=== PATIENT | male | born 2000 | race Two or more races ===

== ENCOUNTER 2024-08-22 18:29 | Observation (INO) ==
[2024-08-22 19:22] LABS: Basophils # (auto) 0.05 K/uL (0.00-0.20); Basophils % (auto) 0.3 %; Eosinophils # (auto) 0.04 K/uL (0.00-0.50); Eosinophils % (auto) 0.2 %; Hematocrit (blood only) 46.5 % (42.0-52.0); Hemoglobin 16.2 g/dl (14.0-18.0); Immature Granulocytes % (auto) 0.5 %; Lymphocytes # (auto) 1.76 K/uL (1.20-3.40); Lymphocytes % (auto) 9.3 %; Mean Corpuscular Hemoglobin 29.7 pg (25.0-34.0); Mean Corpuscular Hgb Conc 34.8 g/dL (32.0-36.0); Mean Corpuscular Volume 85.3 fL (80.0-100.0); Monocytes % (auto) 6.8 %; Neutrophils # (auto) 15.73 K/uL (1.40-6.50); Neutrophils % (auto) 82.9 %; Platelet Count 202 K/uL (130-400); RDW Coefficient of Variation 12.5 % (11.5-14.5); RDW Standard Deviation 38.3 fL (36.4-46.3); Red Blood Count 5.45 M/uL (4.70-6.10); White Blood Count 18.98 K/ul (4.8-10.8)
[2024-08-22 19:23] LABS: iSTAT Hemoglobin 16.7 g/dl (14.0-18.0); iSTAT Ionized Calcium 1.15 mmol/l (1.12-1.32); iSTAT Potassium 3.7 mmol/L (3.3-5.0)
[2024-08-22] MEDS: SODIUM CHLORIDE 0.9% 1,000 ML IV SCH (19:23)
[2024-08-22] MEDS: OPTIRAY 320 100ml IV ONE (19:31)
--- NOTE | 2024-08-22 19:32 | Emergency Department Note ---
History of Present Illness General Chief complaint: Fever Stated complaint: SURGERY ON MON,FEVER,CHILLS,NAUSEA Time Seen by Provider: 08/22/24 18:43 History of Present Illness Provider complaint: Fever abdominal pain Onset (ago): day(s) 1 Maximum Pain Intensity: 3 24-year-old male presents emergency department for fever and abdominal pain. Patient reports symptoms began today. Tmax 1-1.4. Patient reports no nausea or vomiting. He reports that he recently had his appendix removed by Dr. Mills. He states there is swelling and redness over the incision sites from the laparoscopic surgery. No drainage. Home Medications Medication Instructions Recorded Confirmed Type oxycodone 5 mg tablet 5 mg PO Q6H PRN pain #12 tabs 08/18/24 08/22/24 Rx Allergies Allergy/AdvReac Type Severity Reaction Status Date / Time No Known Allergies Allergy Verified 08/22/24 20:09 Past Med/Surg History Problem List (Updated 08/22/24 @ 22:48 by Ramana Sterling MD) Cellulitis (Acute) Superficial incisional surgical site infection (Acute) Acute appendicitis (Acute) Surgical History S/P laparoscopic appendectomy (08/18/24) Laparoscopic Appendectomy - Dinesh Mills, Social History Smoking Status: Never smoker Preferred Language: [place] Feels Safe at Home: Yes Physical Exam Vital Signs Vital Signs - 24 hr 08/22/24 18:37 08/22/24 19:08 08/22/24 19:14 Temperature 36.2 C L 37.1 C Temperature Source Temporal Artery Scan Oral Pulse Rate 113 H 108 H Pulse Rate [Right Finger] 110 H Respiratory Rate 18 18 Respiratory Effort / Characteristics Non-Labored Non-Labored Spontaneous Respiratory Depth Normal Normal Respiratory Pattern Regular Blood Pressure 107/67 Blood Pressure [Right Arm] 126/75 Blood Pressure Mean 80 Blood Pressure Mean [Right Arm] 92 Pulse Oximetry 97 98 Oxygen Delivery Method Room Air Room Air Sepsis Recent Fever Within 48 Hours No Sepsis New/Unexplained Change in Mental Status N/A Sepsis Action Taken by Nursing No Action Required 08/22/24 19:45 08/22/24 20:00 08/22/24 20:15 Temperature Temperature Source Pulse Rate Pulse Rate [Right Finger] 102 H 103 H 94 H Respiratory Rate 20 20 20 Respiratory Effort / Characteristics Non-Labored Spontaneous Non-Labored Spontaneous Non-Labored Spontaneous Respiratory Depth Normal Normal Normal Respiratory Pattern Blood Pressure Blood Pressure [Right Arm] 133/84 137/70 121/77 Blood Pressure Mean Blood Pressure Mean [Right Arm] 100 92 91 Pulse Oximetry 98 98 98 Oxygen Delivery Method Room Air Room Air Room Air Sepsis Recent Fever Within 48 Hours Sepsis New/Unexplained Change in Mental Status Sepsis Action Taken by Nursing 08/22/24 20:30 08/22/24 22:00 08/22/24 22:06 Temperature Temperature Source Pulse Rate 102 H Pulse Rate [Right Finger] 102 H 102 H Respiratory Rate 18 18 18 Respiratory Effort / Characteristics Non-Labored Spontaneous Non-Labored Spontaneous Respiratory Depth Normal Normal Respiratory Pattern Blood Pressure 108/69 Blood Pressure [Right Arm] 126/80 108/69 Blood Pressure Mean Blood Pressure Mean [Right Arm] 95 82 Pulse Oximetry 99 98 98 Oxygen Delivery Method Room Air Room Air Room Air Sepsis Recent Fever Within 48 Hours Sepsis New/Unexplained Change in Mental Status Sepsis Action Taken by Nursing Physical Exam GENERAL: oriented to person, place, and time. appears well-developed and well- nourished. She does not appear distressed. HENT: Exam performed. -Head: Normocephalic and atraumatic. -Right Ear: External ear normal. No mastoid erythema -Left Ear: External ear normal. No mastoid erythema -Mouth/Throat: The oropharynx is clear and moist. No trismus in the jaw. No dental abscesses or uvula swelling. No oropharyngeal exudate or tonsillar abscesses. EYES: Conjunctivae and EOM are normal.Right eye exhibits no discharge. Left eye exhibits no discharge. No scleral icterus. NECK: Normal range of motion. Neck supple. No JVD present. No tracheal deviation and normal range of motion present. CV: Tachycardic rate, regular rhythm, normal heart sounds and intact distal pulses. There is no peripheral edema. Palpable radial pulses bue. PULM/CHEST: Effort normal and breath sounds normal. No respiratory distress. No stridor. no wheezes.no rales. -Chest Wall: no tenderness to palpation ABD: The abdomen is soft. Bowel sounds are normal. no distension. The surgical laparoscopic incision sites are present. In the left lower quadrant there is a surgical incision site which has surrounding erythema and appears inflamed. There is tenderness and swelling in that area. There is no rebound, no guarding MUSC/SKEL: Normal range of motion. There is no peripheral edema, tenderness or deformity. NEURO: Motor and sensation grossly intact. SKIN: Skin is warm and dry. not diaphoretic. PSYCH: normal mood and affect. Behavior is normal. Judgment and thought content normal. Course Course 1842: The patient was evaluated in room B12. A complete history and physical exam was performed Cardiac monitoring: An order was placed for continuous cardiac monitoring. The monitor shows a rate of 110 with sinus tachycardia rhythm interpreted by [place] 2115: Vital signs stable. Labs show leukocytosis of 18. Imaging shows cellulitis but no abscess. Discussed case with Dr. Gomez on-call general surgery who did come down to evaluate the patient at bedside. He recommends Unasyn for the patient. Discussed the results of the patient's scan and blood work with him. The patient, Dr. Gomez, and myself discussed the plan of inpatient admission overnight for IV antibiotics versus outpatient oral antibiotics and discharged from the emergency department. After discussion between 3 of us, we decided to admit the patient overnight and continue IV antibiotics and for Dr. Gomez to evaluate the patient in the morning. Administered Medications Discontinued Medications Sodium Chloride (Nss) 1,000 mls @ 999 mls/hr IV .Q1H1M ALICIA Stop: 08/22/24 19:45 Last Infusion: 08/22/24 21:24 Dose: Infused Documented By: Admin: 08/22/24 19:23 Dose: 999 mls/hr Documented By: JOSE Ampicillin Sodium/Sulbactam Sodium (Unasyn) 3,000 mg in 100 mls @ 200 mls/hr IV NOW STA Stop: 08/22/24 21:25 Last Infusion: 08/22/24 21:59 Dose: Infused Documented By: Admin: 08/22/24 21:24 Dose: 200 mls/hr Documented By: KRISTINA Ioversol (Optiray 320 100ml) 93 ml IV ONCE ONE Stop: 08/22/24 19:32 Last Admin: 08/22/24 19:31 Dose: 93 ml Documented By: MIESHA Medical Decision Making Laboratory Data Attestation: I reviewed the patient's lab results. 08/22/24 19:12 08/22/24 19:05 Lab Results 08/22/24 08/22/24 08/22/24 Range/Units 19:05 19:11 19:12 WBC 18.98 H (4.8-10.8) K/ul RBC 5.45 (4.70-6.10) M/uL Hgb 16.2 (14.0-18.0) g/dl POC Hgb 16.7 (14.0-18.0) g/dl Hct 46.5 (42.0-52.0) % POC Hct 49 (42-52) % MCV 85.3 (80.0-100.0) fL MCH 29.7 (25.0-34.0) pg MCHC 34.8 (32.0-36.0) g/dL RDW Std Deviation 38.3 (36.4-46.3) fL RDW Coeff of Stepan 12.5 (11.5-14.5) % Plt Count 202 (130-400) K/uL MPV 10.0 (9.4-12.4) fL Immature Gran % (Auto) 0.5 % Neut % (Auto) 82.9 % Lymph % (Auto) 9.3 % Beauregard % (Auto) 6.8 % Eos % (Auto) 0.2 % Baso % (Auto) 0.3 % Neut # (Auto) 15.73 H (1.40-6.50) K/uL Lymph # (Auto) 1.76 (1.20-3.40) K/uL Beauregard # (Auto) 1.30 H (0.11-0.59) K/uL Eos # (Auto) 0.04 (0.00-0.50) K/uL Baso # (Auto) 0.05 (0.00-0.20) K/uL Immature Gran # (Auto) 0.10 (0.01-0.20) K/uL PT 10.0 (9.0-12.0) Seconds INR 0.9 (0.9-1.1) APTT 29 (21-31) Seconds PTT Ratio 1.1 POC Sodium 137 (135-144) mmol/L Sodium 136 (136-145) mmol/L POC Potassium 3.7 (3.3-5.0) mmol/L Potassium 3.7 (3.5-5.1) mmol/L POC Chloride 101 (101-112) mmol/L Chloride 100 (98-107) mmol/L Carbon Dioxide 25 (21-32) mmol/L POC Total CO2 24 (24-31) mmol/L Anion Gap 11 (3-11) POC Anion Gap 17.0 (16-25) mmol/L POC BUN 9 (7-18) mg/dl BUN 10 (6-23) mg/dl Creatinine 0.94 (0.6-1.4) mg/dl POC Creatinine 1.0 (0.6-1.3) mg/dl Est Cr Clr Drug Dosing 144.5 ml/min eGFR 115.37 BUN/Creatinine Ratio 10.6 (10-20) Glucose 126 H (70-99(Fasting)) mg/dl POC Glucose (other) 128 H (70-99) mg/dl Lactate 1.2 (0.4-2.0) mmol/L Calcium 9.9 (8.6-10.3) mg/dl POC Ioniz Calcium Rush 1.15 (1.12-1.32) mmol/l Magnesium 2.0 (1.7-2.4) mg/dl Total Bilirubin 0.9 (0.2-1.0) mg/dl Direct Bilirubin 0.1 (0-0.2) mg/dl AST 26 (13-39) U/L ALT 55 H (7-52) U/L Alkaline Phosphatase 99 (34-104) U/L Troponin I High Sens 3.5 (0-20) pg/ml Total Protein 8.2 (6.0-8.3) gm/dl Albumin 4.2 (3.4-5.0) gm/dl Procalcitonin 0.05 (0-0.5) ng/ml Imaging Data Attestation: I personally reviewed and interpreted this imaging study as follows: My Impression: Chest x-ray negative. Airway clear. No pneumothorax. No consolidation. No cardiomegaly or cephalization.. No free air under the diaphragm. No fractures of the skeletal structures. Radiologist's Impression: Chest X-Ray 08/22/24 18:44 EXAM: XR chest 1V portable CLINICAL HISTORY: Sepsis. TECHNIQUE: An X-ray image of the chest is obtained in AP projection. COMPARISON: No prior studies are available for comparison. FINDINGS: Pulmonary Parenchyma: Lungs are clear bilaterally. No evidence of consolidation, collapse, or focal opacities. No pulmonary nodules are identified. No evidence of pleural effusion or pleural thickening. Heart and Mediastinum: Heart size and shape are normal. No mediastinal widening or masses. No hilar or mediastinal lymphadenopathy. Bony Thorax: Bony thorax appears intact without fractures or deformities. Soft Tissues: Soft tissues overlying the chest wall are unremarkable. IMPRESSION: No acute cardiopulmonary abnormalities are identified. Electronically signed by Scott Blas 08-22-2024 9:33 PM Abdomen/Pelvis CT 08/22/24 18:45 CT of the abdomen pelvis with contrast Technique: Postcontrast axial images of the abdomen pelvis. Coronal and sagittal reformatted images made available for review Comparison made with prior exam dated 08/18/2024 Findings: New postoperative changes appendectomy.Solid abdominal organs are unremarkable in appearance. No free air or intestinal obstruction. Bone windows demonstrate no focal abnormality. Urinary bladder within normal limits. Expected postoperative changes in the subcutaneous soft tissue of the left anterior abdomen. Impression New postoperative changes appendectomy. CT of the abdomen pelvis otherwise negative for acute intra-abdominal pathology. Electronically signed by Tay Last 08-22-2024 8:30 PM ECG Data Attestation: I personally reviewed and interpreted this ECG as follows: Rate (beats per minute): 108 Rhythm: + normal sinus ECG Intervals/blocks: + Normal QRS, + Normal KS and + Normal QT-c ECG ST segments: + Normal ST segments [facility] Narrative 1843: The patient was evaluated in room B12. A complete history and physical exam was performed Cardiac monitoring: An order was placed for continuous cardiac monitoring. The monitor shows a rate of 110 with sinus tachycardia rhythm interpreted by [place] 2115: Vital signs stable. Labs show leukocytosis of 18. Imaging shows cellulitis but no abscess. Discussed case with Dr. Gomez on-call general surgery who did come down to evaluate the patient at bedside. He recommends Unasyn for the patient. Discussed the results of the patient's scan and blood work with him. The patient, Dr. Gomez, and myself discussed the plan of inpatient admission overnight for IV antibiotics versus outpatient oral antibiotics and discharged from the emergency department. After discussion between 3 of us, we decided to admit the patient overnight and continue IV antibiotics and for Dr. Gomez to evaluate the patient in the morning. Impression & Plan Superficial incisional surgical site infection, Cellulitis Discharge Plan Visit Data Chief Complaint: Fever Stated Complaint: SURGERY ON MON,FEVER,CHILLS,NAUSEA ED Provider: Ramana Sterling Discharge Problem: Superficial incisional surgical site infection, Cellulitis Patient Disposition: Admitted As Inpatient Condition: Fair Discharge Instructions Interventions: ED Discharge Assessment Last Done: 08/22/24 22:06 Forms Stand Alone Forms: [employer] [facility] [employer] Prescriptions Prescriptions: No Action oxycodone 5 mg tablet 5 mg PO Q6H PRN (Reason: pain) Qty: 12 0RF Rx Instructions: Initial Therapy post surgery Referrals Referrals: PCP,NO [Primary Care Provider] -
[2024-08-22 19:47] LABS: BUN Creatinine Ratio 10.6 (10-20); Bilirubin Direct 0.1 mg/dl (0-0.2); Bilirubin,Total 0.9 mg/dl (0.2-1.0); Calcium 9.9 mg/dl (8.6-10.3); Creatinine Clr Calc Pharmacy 144.5 ml/min; Potassium 3.7 mmol/L (3.5-5.1); Total Protein 8.2 gm/dl (6.0-8.3)
[2024-08-22 19:58] LABS: INR 0.9 (0.9-1.1); Partial Thromboplastin Ratio 1.1; Partial Thromboplastin Time 29 Seconds (21-31)
[2024-08-22 20:09] LABS: Troponin I High Sensitivity 3.5 pg/ml (0-20)
--- NOTE | 2024-08-22 20:30 | CT Scan Report ---
CT of the abdomen pelvis with contrast Technique: Postcontrast axial images of the abdomen pelvis. Coronal and sagittal reformatted images made available for review Comparison made with prior exam dated 08/18/2024 Findings: New postoperative changes appendectomy.Solid abdominal organs are unremarkable in appearance. No free air or intestinal obstruction. Bone windows demonstrate no focal abnormality. Urinary bladder within normal limits. Expected postoperative changes in the subcutaneous soft tissue of the left anterior abdomen. Impression New postoperative changes appendectomy. CT of the abdomen pelvis otherwise negative for acute intra-abdominal pathology. Electronically signed by Tay Last 08-22-2024 8:30 PM
[2024-08-22] MEDS: AMPICILLIN/SULBACTAM SOD 3,000 MG/100 ML BAG IV STA (21:24)
--- NOTE | 2024-08-22 21:25 | History & Physical Report ---
Date of Service August 22, 2024 Assessment & Plan (1) Superficial incisional surgical site infection: Plan: Superficial surgical site infection at 12 mm port site in the left lower quadrant. Given his fevers and leukocytosis, will admit for IV antibiotics. Hope for discharge in next 24 hours. Admit to observation to MedSurg IV antibiotics IV fluids for resuscitation given tachycardia Patient may have regular diet, oral pain meds, scheduled Toradol Continue to monitor cellulitis, hopeful for discharge in next 24 hours Will be discharged on oral antibiotics and follow-up with Dr. Mills as an outpatient (2) S/P laparoscopic appendectomy: History of Present Illness Chief Complaint: Redness around incision Primary Care Provider: NO PCP Presented to the emergency department with chief complaint of redness around his left lower quadrant incision. Status post uncomplicated laparoscopic appendectomy with Dr. Mills on 18 August 2024. Was doing well until he started noticed some redness and tenderness today. Did have fever reported to 101.5. Tender and red around his left lower quadrant incision. Otherwise has been doing well since surgery. No allergies, not on any blood thinners. Otherwise healthy Allergies Allergy/AdvReac Type Severity Reaction Status Date / Time No Known Allergies Allergy Verified 08/22/24 20:09 Home Medications Medication Instructions Recorded Confirmed Type oxycodone 5 mg tablet 5 mg PO Q6H PRN pain #12 tabs 08/18/24 08/22/24 Rx Past Med/Surg History Problem List (Updated 08/22/24 @ 21:24 by Hector Gomez DO, FACS) Superficial incisional surgical site infection Acute appendicitis (Acute) Surgical History S/P laparoscopic appendectomy (08/18/24) Laparoscopic Appendectomy - Dinesh Mills DO Social History Smoking Status: Never smoker Preferred Language: [place] Feels Safe at Home: Yes Review of Systems Review of Systems: All systems reviewed & are unremarkable except as noted in HPI & below Physical Exam Constitutional: WD/WN, vitals as above + obese Respiratory: normal respiratory effort, lungs clear to auscultation Cardiovascular: RRR, no murmur, no edema Gastrointestinal (Abdomen): Inspection/Auscultation: + abdominal surgical incision (Erythema and induration around LLQ incision, no fluctuance) Percussion/Palpation: + abdomen tender (Left lower quadrant incision) and abdomen soft; no guarding and abdomen not rigid Results & Data Results & Data Vital Signs (Past 12 Hours) Vital Signs Temp Pulse Pulse Resp BP BP Pulse Ox 08/22/24 20:30 102 H 18 126/80 99 08/22/24 20:15 94 H 20 121/77 98 08/22/24 20:00 103 H 20 137/70 98 08/22/24 19:45 102 H 20 133/84 98 08/22/24 19:14 37.1 C 110 H 18 126/75 98 08/22/24 19:08 108 H 08/22/24 18:37 36.2 C L 113 H 18 107/67 97 O2 Del Method 08/22/24 20:30 Room Air 08/22/24 20:15 Room Air 08/22/24 20:00 Room Air 08/22/24 19:45 Room Air 08/22/24 19:14 Room Air 08/22/24 19:08 08/22/24 18:37 Room Air Laboratory Results Laboratory Results - last 24 hr 08/22/24 08/22/24 08/22/24 19:05 19:11 19:12 WBC 18.98 H RBC 5.45 Hgb 16.2 POC Hgb 16.7 Hct 46.5 POC Hct 49 MCV 85.3 MCH 29.7 MCHC 34.8 RDW Std Deviation 38.3 RDW Coeff of Stepan 12.5 Plt Count 202 MPV 10.0 Immature Gran % (Auto) 0.5 Neut % (Auto) 82.9 Lymph % (Auto) 9.3 Casey % (Auto) 6.8 Eos % (Auto) 0.2 Baso % (Auto) 0.3 Neut # (Auto) 15.73 H Lymph # (Auto) 1.76 Casey # (Auto) 1.30 H Eos # (Auto) 0.04 Baso # (Auto) 0.05 Immature Gran # (Auto) 0.10 PT 10.0 INR 0.9 APTT 29 PTT Ratio 1.1 POC Sodium 137 Sodium 136 POC Potassium 3.7 Potassium 3.7 POC Chloride 101 Chloride 100 Carbon Dioxide 25 POC Total CO2 24 Anion Gap 11 POC Anion Gap 17.0 POC BUN 9 BUN 10 Creatinine 0.94 POC Creatinine 1.0 Est Cr Clr Drug Dosing 144.5 eGFR 115.37 BUN/Creatinine Ratio 10.6 Glucose 126 H POC Glucose (other) 128 H Lactate 1.2 Calcium 9.9 POC Ioniz Calcium Rush 1.15 Magnesium 2.0 Total Bilirubin 0.9 Direct Bilirubin 0.1 AST 26 ALT 55 H Alkaline Phosphatase 99 Troponin I High Sens 3.5 Total Protein 8.2 Albumin 4.2 Procalcitonin 0.[address] scan personally viewed and interpreted agree with the assessment of no intra- abdominal abnormality, status post appendectomy. Soft tissue inflammation in left lower quadrant at incision site. Consistent with cellulitis. Abdomen/Pelvis CT 08/22/24 18:45 CT of the abdomen pelvis with contrast Technique: Postcontrast axial images of the abdomen pelvis. Coronal and sagittal reformatted images made available for review Comparison made with prior exam dated 08/18/2024 Findings: New postoperative changes appendectomy.Solid abdominal organs are unremarkable in appearance. No free air or intestinal obstruction. Bone windows demonstrate no focal abnormality. Urinary bladder within normal limits. Expected postoperative changes in the subcutaneous soft tissue of the left anterior abdomen. Impression New postoperative changes appendectomy. CT of the abdomen pelvis otherwise negative for acute intra-abdominal pathology. Electronically signed by Tay Last 08-22-2024 8:30 PM Code Status & VTE Plan VTE Prophylaxis Plan VTE Prophylaxis will be ordered: Yes PG Care Time/CCT Total # of Minutes Spent Total Time Spent with Patient: Total time spent is greater than 50% in coordination of care (as documented) at patient's floor/unit and/or counseling patient: Coding Level of Care Code 20879 INT INP/OBS CARE 2/55MIN Diagnoses Superficial incisional surgical site infection T81.41XA S/P laparoscopic appendectomy Z90.49
--- NOTE | 2024-08-22 21:33 | XRay Report ---
EXAM: XR chest 1V portable CLINICAL HISTORY: Sepsis. TECHNIQUE: An X-ray image of the chest is obtained in AP projection. COMPARISON: No prior studies are available for comparison. FINDINGS: Pulmonary Parenchyma: Lungs are clear bilaterally. No evidence of consolidation, collapse, or focal opacities. No pulmonary nodules are identified. No evidence of pleural effusion or pleural thickening. Heart and Mediastinum: Heart size and shape are normal. No mediastinal widening or masses. No hilar or mediastinal lymphadenopathy. Bony Thorax: Bony thorax appears intact without fractures or deformities. Soft Tissues: Soft tissues overlying the chest wall are unremarkable. IMPRESSION: No acute cardiopulmonary abnormalities are identified. Electronically signed by Scott Blas 08-22-2024 9:33 PM
[2024-08-22] MEDS ORDERED: ONDANSETRON INJ 2 MG/ML 2 ML VIAL IV PRN (23:10)
[2024-08-22] MEDS ORDERED: MoRPHine SULFATE 4 MG/ML 1 ML CARP\\VIAL IV PRN (23:10)
[2024-08-22] MEDS ORDERED: oxyCODONE HCL IR 5 MG TAB (IMMEDIATE RELEASE) PO PRN ×2 (23:10)
[2024-08-22] MEDS ORDERED: ACETAMINOPHEN 500 MG TAB PO PRN (23:10)
[2024-08-22] MEDS ORDERED: MoRPHine SULFATE 2 MG/ML CARP IV PRN (23:10)
[2024-08-23] MEDS: LACTATED RINGER'S 1,000 ML IV SCH (00:04)
[2024-08-23] MEDS: KETOROLAC TROMETHAMINE 15 MG/ML VIAL IV SCH (00:04)
[2024-08-23] MEDS: AMPICILLIN/SULBACTAM SOD 3,000 MG/100 ML BAG IV SCH (04:41)
[2024-08-23 08:14] VITALS: RESP 16
[2024-08-23 08:49] LABS: Basophils # (auto) 0.03 K/uL (0.00-0.20); Basophils % (auto) 0.2 %; Eosinophils # (auto) 0.03 K/uL (0.00-0.50); Eosinophils % (auto) 0.2 %; Hematocrit (blood only) 39.8 % (42.0-52.0); Hemoglobin 13.9 g/dl (14.0-18.0); Immature Granulocytes # (auto) 0.06 K/uL (0.01-0.20); Immature Granulocytes % (auto) 0.4 %; Lymphocytes # (auto) 2.42 K/uL (1.20-3.40); Lymphocytes % (auto) 15.5 %; Mean Corpuscular Hemoglobin 29.8 pg (25.0-34.0); Mean Corpuscular Hgb Conc 34.9 g/dL (32.0-36.0); Mean Corpuscular Volume 85.2 fL (80.0-100.0); Mean Platelet Volume 9.6 fL (9.4-12.4); Monocytes # (auto) 0.98 K/uL (0.11-0.59); Monocytes % (auto) 6.3 %; Neutrophils # (auto) 12.14 K/uL (1.40-6.50); Neutrophils % (auto) 77.4 %; Platelet Count 174 K/uL (130-400); RDW Coefficient of Variation 12.5 % (11.5-14.5); RDW Standard Deviation 38.5 fL (36.4-46.3); Red Blood Count 4.67 M/uL (4.70-6.10); White Blood Count 15.66 K/ul (4.8-10.8)
[2024-08-23 09:08] LABS: BUN Creatinine Ratio 14.9 (10-20); Calcium 8.4 mg/dl (8.6-10.3); Creatinine Clr Calc Pharmacy 183.3 ml/min; Potassium 3.4 mmol/L (3.5-5.1)
--- NOTE | 2024-08-23 09:09 | Surgery Progress Note ---
Date of Service August 23, 2024 Assessment & Plan (1) Superficial incisional surgical site infection: Plan: Superficial surgical site infection at 12 mm port site in the left lower quadrant. -Incision site this morning does have some purulent drainage, will plan to open/probe the incision at bedside this morning -Continue IV antibiotics, continue to trend temps and WBC -Slightly tachycardic overnight, will continue to provide IV fluids for now -Continue regular diet, oral pain meds and scheduled Toradol (2) S/P laparoscopic appendectomy: Admission and Anticipated Discharge Date Admission Date: August 22, 2024 Supervising Physician Co-Signing Physician Notes Patient seen examined, labs reviewed, agree with above. Status post laparoscopic appendectomy, admitted overnight with cellulitis at left lower quadrant port incision. Feels better, is draining a little bit of pus from the incision. On exam he is currently afebrile with stable vitals. He has some improved cellulitis in the left upper quadrant however there is some purulent drainage. The Dermabond was removed, the sutures were cut, and the wound was probed. About 20 cc of purulent drainage was expressed. This was sent for culture. The wound was packed with gauze. WBC 16 down from 18. We will see how he does today, feeling okay this afternoon he may be able to be discharged, if not we will discharge him tomorrow on oral antibiotics with local wound care. He should follow-up with the general surgery clinic for wound care instructions on Sunday, and follow-up with Dr. Mills in the next few weeks. Subjective Patient feeling well this morning Denies any fevers overnight Continues on IV abx and WBC 15.6 this morning Tolerating diet without issues of worsening abdominal pain, nausea or vomiting Physical Exam Constitutional: WD/WN, vitals as above Respiratory: normal respiratory effort, lungs clear to auscultation Cardiovascular: RRR, no murmur, no edema Gastrointestinal (Abdomen): Abdomen soft, nondistended, +erythema and induration over LLQ incision, small amount of dark/purulent drainage appreciated from site Results & Data Vital Signs (Past 12 Hours) Vital Signs Temp Pulse Pulse Resp BP BP Pulse Ox 08/23/24 07:00 36.8 C 99 H 16 112/73 95 08/22/24 23:10 37.1 C 103 H 18 129/78 98 08/22/24 22:55 37.1 C 103 H 18 129/78 98 08/22/24 22:06 102 H 18 108/69 98 08/22/24 22:00 102 H 18 108/69 98 O2 Del Method 08/23/24 07:00 Room Air 08/22/24 23:10 Room Air 08/22/24 22:55 Room Air 08/22/24 22:06 Room Air 08/22/24 22:00 Room Air PG Care Time/CCT Total # of Minutes Spent Total Time Spent with Patient: Total time spent is greater than 50% in coordination of care (as documented) at patient's floor/unit and/or counseling patient: Coding [place] [address] Post Operative Follow-Up Patient Type Established Medical Decision Making Straight Forward Diagnoses Superficial incisional surgical site infection T81.41XA S/P laparoscopic appendectomy Z90.49
--- NOTE | 2024-08-23 10:14 | Electrocardiogram Report ---
Test Reason : Blood Pressure : */* mmHG Vent. Rate : 108 BPM Atrial Rate : 108 BPM P-R Int : 140 ms QRS Dur : 92 ms QT Int : 324 ms P-R-T Axes : 55 66 43 degrees QTcB Int : 434 ms Sinus tachycardia Otherwise normal ECG No previous ECGs available Confirmed by Nabeel Strauss ([id number]) on 08/23/2024 10:13:45 AM Referred By: REFERRED SELF Confirmed By: Nabeel Strauss
[2024-08-23 14:58] VITALS: BP 120/71; PULSE 96; TEMP 97.9; O2SAT 97
--- NOTE | 2024-08-25 16:03 | Discharge Summary ---
Date of Service August 23, 2024 Admission HPI Per Admitting Provider Presented to the emergency department with chief complaint of redness around his left lower quadrant incision. Status post uncomplicated laparoscopic appendectomy with Dr. Mills on 18 August 2024. Was doing well until he started noticed some redness and tenderness today. Did have fever reported to 101.5. Tender and red around his left lower quadrant incision. Otherwise has been doing well since surgery. No allergies, not on any blood thinners. Otherwise healthy Admission Exam Per Admitting Provider Physical Exam Constitutional: WD/WN, vitals as above + obese Respiratory: normal respiratory effort, lungs clear to auscultation Cardiovascular: RRR, no murmur, no edema Gastrointestinal (Abdomen): Inspection/Auscultation: + abdominal surgical incision (Erythema and induration around LLQ incision, no fluctuance) Percussion/Palpation: + abdomen tender (Left lower quadrant incision) and abdomen soft; no guarding and abdomen not rigid Principal Diagnosis post-op wound infection Discharge Exam Constitutional WD/WN, vitals as above Respiratory normal respiratory effort, lungs clear to auscultation Cardiovascular RRR, no murmur, no edema Gastrointestinal (Abdomen) Abdomen soft, nondistended, +erythema and induration over LLQ incision, incision was opened at bedside, dark/purulent fluid expressed (culture sent), incision was packed with gauze packing and dressed with 4x4 packing and skin tape. Discharge Data Allergies Allergy/AdvReac Type Severity Reaction Status Date / Time No Known Allergies Allergy Verified 08/25/24 15:12 Consultations 08/22/24 20:57 Consult General Surgery Stat 08/22/24 21:13 ED Decision to Admit Stat Ordered Studies 08/22/24 18:45 CT abd pelvis IV con only Stat Hospital Course (1) Superficial incisional surgical site infection: Patient was admitted to the surgical service for findings of superficial incisional surgical site infection s/p laparoscopic appendectomy performed Dr. Mills on 08/18/2024. Patient was found to have an elevated WBC of 18 at time of admission and he was started on IV antibiotic coverage with Zosyn. The following morning, the patient was noted to have some spontaneous drainage of the left lower quadrant incision, this was opened at bedside and a wound culture was obtained. The incision was then packed with plain gauze and patient was given instructions on how to perform daily packing/dressing changes. The patient's WBC started to downtrend and he remained afebrile. He was transitioned from IV antibiotics to oral antibiotic coverage with Augmentin. The patient otherwise was stable from a surgical standpoint to be discharged home with wound care instructions and to have follow up with our outpatient office early next week for a wound check and packing change. Total Time Total Time Spent Total Time Spent (In Minutes): >30 minutes Discharge Plan Discharge Items Patient Disposition: Home - Self-Care Reason For Visit: POST OP SSI Discharge Diagnosis: post op wound infection Condition on Discharge: Fair Activity: Per Instructions section Non-emergency contact: Primary Care Provider and Surgeon Call non-emergency contact if: your pain is not controlled, your temperature is above 101, your wound has increased redness, your wound has increased drainage and your wound pain has increased Follow-up/Referrals: Dinesh Mills DO [Physician] - (Call our outpatient office Sunday (08/25/24) AM for a nurse check your wound ) PCP,JULIANE [Primary Care Provider] - Diet: Regular Addtl Attending Provider Instructions: SPECIAL CARE INSTRUCTIONS: *CALL OUR OUTPATIENT GENERAL SURGERY OFFICE Sunday08/25/24 TO MAKE AN APPOINTMENT FOR A NURSE TO CHECK YOUR WOUND. * Continue to pack your incision with wet to dry packing, cover with dry gauze and tape. Change your dressing once daily. You may change the outer gauze/dressing as needed throughout the day if needed. * You may shower, you can remove your packing prior to showering. Let soap and water run over the incision sites. Re-pack with gauze packing after showering. Do NOT soak in bath tubs, hot tubs, or pools for 2 weeks *Continue all of your oral antibiotics as prescribed * No lifting greater than 10lbs. No exercise until cleared by surgeon. Light walking is accepted. * No driving while taking narcotic pain medication * No drinking alcohol while taking narcotic pain medication * May use Ibuprofen/Tylenol over the counter for pain as tolerated. Do not exceed 3grams of Tylenol per 24 hours * Expect some swelling and bruising. CALL YOUR DOCTOR IF: * Temperature above 101 degrees, nausea/vomiting, fever/chills * Pain not relieved by pain medicine ordered * There is increased drainage or redness from any incision * You have any unanswered questions or concerns [phone]. FOLLOW UP VISIT: If not already scheduled, please call the office for a follow-up visit. Office Pending Studies at Discharge: Yes Studies:: wound culture Stand-Alone Forms: [facility], Smoking Cessation Medications and DC Order Prescriptions: New amoxicillin-pot clavulanate 875-125 mg tablet 1 tab PO Q12H 7 Days Qty: 14 0RF Continued oxycodone 5 mg tablet 5 mg PO Q6H PRN (Reason: pain) Qty: 12 0RF Rx Instructions: Initial Therapy post surgery Discharge Orders: Discharge Order (Routine); Ordered 08/23/24 Ordered By: Socoter Porras Admission Data Admit Date/Time: 08/22/24 21:20 Attending Provider: Hector Gomez Admit Provider: Hector Gomez Primary Care Provider: PCP,NO Other Providers: Hector Gomez Other Interventions: Discharge Summary Assessment (RN) Last Done: 08/23/24 17:59 Coding [place] [address] INP/OBS DISCH >30 MIN Patient Type Established History Problem Focused Exam Problem Focused Medical Decision Making Straight Forward Diagnoses Superficial incisional surgical site infection T81.41XA
== END 2024-08-23 18:35 | disposition home or self-care (01) ==
LOC: 3N 18:29 → ED 18:29 → 3N 22:06